=== PATIENT | male | born 1965 | race African-American/Black ===

== ENCOUNTER 2019-02-11 10:34 | Day surgery (SDC) | payer OTHER ==
[2019-02-11] MEDS ORDERED: LACTATED RINGERS 1,000 ML IV SCH (11:00)
[2019-02-11] MEDS ORDERED: MARCAINE-EPI 0.25%-1:200,000 INFILTRATI ONE ×2 (11:41→12:36)
--- NOTE | 2019-02-11 11:41 | Anesthesia Day of Surgery ---
Anesthesia Day of Surgery - Day of Surgery Patient Examined: Yes Patient H&P Reviewed: Yes Patient is NPO: Yes
[2019-02-11] MEDS ORDERED: SUBLIMAZE IV PRN (11:44)
[2019-02-11] MEDS ORDERED: ZOFRAN IV PRN (11:44)
--- NOTE | 2019-02-11 11:44 | Anesthesia Consultation ---
Anesthesia Consult and Med Hx Date of service: 02/11/19 - Airway Anesthetic Teeth Evaluation: Good ROM Head & Neck: Adequate Mental/Hyoid Distance: Adequate Mallampati Class: Class III Intubation Access Assessment: Probably Good - Pre-Operative Health Status ASA Pre-Surgery Classification: ASA1 Proposed Anesthetic Plan: General (Active, denies medical issues) - Central Nervous System Hx Psychiatric Problems: No - Other Systems Hx Alcohol Use: Yes
[2019-02-11] MEDS ORDERED: TYLENOL PO ONE (11:45)
[2019-02-11] MEDS ORDERED: SUBLIMAZE ONE (11:46)
[2019-02-11] MEDS ORDERED: DIPRIVAN 10 MG/ML IV ONE (11:47)
[2019-02-11] MEDS ORDERED: NEO SYNEPHRINE/NS Syringe(OR USE) IV ONE (11:51)
[2019-02-11] MEDS ORDERED: QUELICIN ONE (11:51)
[2019-02-11] MEDS ORDERED: XYLOCAINE MPF 2% ONE (11:51)
[2019-02-11] MEDS ORDERED: ROBINUL ONE ×2 (11:51→13:00)
[2019-02-11] MEDS ORDERED: ZEMURON IV ONE (11:51)
[2019-02-11] MEDS ORDERED: NEURONTIN PO NR (12:00)
[2019-02-11] MEDS ORDERED: HEPARIN ONE (12:09)
[2019-02-11] MEDS ORDERED: HEPARIN SUB-Q NR (12:15)
[2019-02-11] MEDS ORDERED: VERSED ONE (12:18)
[2019-02-11] MEDS ORDERED: MARCAINE-EPI/PF 0.25%-1:200,000 INFILTRATI ONE ×2 (12:48)
[2019-02-11] MEDS ORDERED: NACL 0.9% IR ONE ×2 (12:48)
[2019-02-11] MEDS ORDERED: BLOXIVERZ ONE ×2 (13:00→13:37)
[2019-02-11] MEDS ORDERED: ANCEF/STERILE WATER 2 GM/20 ML IV NR (13:00)
[2019-02-11] MEDS ORDERED: BREVIBLOC IV ONE (13:00)
[2019-02-11] MEDS ORDERED: APRESOLINE IV PRN (14:20)
--- NOTE | 2019-02-11 15:06 | Post Operative Note ---
Pre-op diagnosis: Chronic cholecystitis Post-op diagnosis: same Findings: Large gallstone Procedure: Laparoscopic cholecystectomy Anesthesia: DEEPAK Surgeon: SHAZIA HARKINS Estimated blood loss: minimal Pathology: list (Gallbladder and gallstone) Specimen disposition: to lab Condition: stable Disposition: PACU
[2019-02-11 16:13] VITALS: BP 134/84
--- NOTE | 2019-02-11 17:33 | Post Anesthesia Evaluation ---
- Post Anesthesia Evaluation Patient Participated: Yes Airway Patent: Yes Stable Respiratory Function: Yes Nausea/Vomiting: No Temp > 96.8F: Yes Pain Manageable: Yes Adequeate Hydration: Yes Anesthesia Complications: No Block Receding Appropriately: Not Applicable Patient on Ventilator: No
--- NOTE | 2019-02-14 14:11 | Procedure Note ---
Date of procedure: 02/11/19 Pre-op diagnosis: Chronic cholecystitis Post-op diagnosis: same Procedure: Laparoscopic cholecystectomy Description of procedure: Pt was placed supine on the OR table. GETA was administered. Abdomen was prepped and draped. Proposed trocar sites were in filtrated with 8 ml of 0.5% Marcaine with epinephrine. A small infraumbilical incision was made, linea alba incised and the peritoneal cavity entered. A blunt surgiport was inserted into the peritoneal cavity and pneumoperitoneum initiated. Eleven millimeter subxiphoid, 5 mm RUQ and 5 mm surgiports were inserted into the peritoneal cavity under direct vision. Pt was placed in a reverse Trendelenburg position with the right side rotated upward. Fundus of the gallbladder was grasped and was retracted cephalad. Cystic artery and duct were skeletonized and the critical view of safety obtained. Cystic artery and duct were doubly clipped and divided. Gallbladder was dissected away from the hepatic fossa with the Bovie. Gallbladder was placed in an Endobag and the Endobag and gallbladder removed via the umbilical fascial defect. The umbilical port was replaced and pneumoperitoneum re-established. Upper abdominal ports were removed and no bleeding was identified from the port entry sites under low pressure. The umbilical fascial defect was closed with 2 interrupted sutures of 0-Vicryl. Skin incisions were approximated with running subcuticular sutures of 4-0 Monocryl. Skin glue was applied to the incisions. Pt was extubated in the OR and was taken to PACU in stable condition. Anesthesia: GETA Surgeon: SHAZIA HARKINS Estimated blood loss: minimal Pathology: list (Gallbladder and gallstone) Specimen disposition: to lab Condition: stable Disposition: PACU
== END 2019-02-11 16:20 | disposition home or self-care (01) ==
LOC: OR 10:34
PROVIDERS: ATTEND Surgery
DX: K80.10 Calculus of gallbladder with chronic cholecystitis without obstruction (principal); Z79.899 Other long term (current) drug therapy; Z72.89 Other problems related to lifestyle
CPT/HCPCS: 47562; 88304; A4217; J0330; J0360; J1644; J2250; J2370; J2704; J2710; J3010; J7120